=== PATIENT | male | born 1965 | race Caucasian/White ===

== ENCOUNTER 2020-10-13 13:41 | Emergency (ER) | payer SELFPAY ==
[~2020-10-13] VITALS: Ht 167.6 cm; Wt 60.8 kg
--- NOTE | 2020-10-13 13:45 | NUR ---
PT BIBRA FROM WORK C/O MID BACK AND BLE PAIN W/ NOTED ABRASIONS S/P FALLING OFF A POOL PUMP/MOTOR ENCLOSURE APPROX 4 FEET HIGH. PT DID ENDORSED HITTING HEAD BUT DENIES KO. NO OBVIOUS HEAD TRAUMA NOTED. PT IS AAOX3. STABLE VITALS. AWAITING MD VARGAS.
--- NOTE | 2020-10-13 14:30 | NUR ---
DR DENNEY AT BEDSIDE FOR EVAL.
--- NOTE | 2020-10-13 14:43 | NUR ---
RADIOLOGY AT BEDSIDE FOR CT HEAD,CHEST AND C SPINE CT SCAN VIA [facility].
[2020-10-13] MEDS ORDERED: KETOROLAC TROMETHAMINE 15 MG/ML VIAL ONE (14:57)
[2020-10-13] MEDS ORDERED: TDAP [DIPH/PERTUSSIS/TET] 0.5 ML VIAL IM ONE ×2 (14:57→15:00)
[2020-10-13] MEDS ORDERED: KETOROLAC TROMETHAMINE INJ 30 MG/ML VIAL IM ONE (15:00)
[2020-10-13] MEDS ORDERED: ACET-73 PO (15:54)
--- NOTE | 2020-10-13 16:12 | NUR ---
Patient discharged to home in stable condition. Written and verbal after care instructions given. Patient verbalizes understanding of instruction.
[2020-10-13 16:13] VITALS: BP 145/81
== END 2020-10-13 16:13 | disposition home or self-care (01) ==
LOC: ER 13:46
DX: S00.83XA Contusion of other part of head, initial encounter (principal); S90.512A Abrasion, left ankle, initial encounter; S90.511A Abrasion, right ankle, initial encounter; S20.412A Abrasion of left back wall of thorax, initial encounter; S50.311A Abrasion of right elbow, initial encounter; W17.3XXA Fall into empty swimming pool, initial encounter; Y93.89 Activity, other specified; Y92.89 Other specified places as the place of occurrence of the external cause; Y99.8 Other external cause status
CPT/HCPCS: 70450; 71250; 72125; 90471; 90715; 96372; 99285; J1885